=== PATIENT | female | born 1975 | race Caucasian/White ===

== ENCOUNTER 2022-09-08 | Outpatient (REF) | payer SELFPAY | END 2022-09-08 00:01 | disposition home or self-care (01) | LOC: HO.HOSX | PROVIDERS: Visit Provider Physician Assistant | DX: Z13.89 Encounter for screening for other disorder (principal) ==

== ENCOUNTER 2023-07-04 14:00 | Outpatient (RCR) | payer OTHER, SELFPAY | END 2023-07-21 08:24 | disposition home or self-care (01) | LOC: HO.PT 14:00 | PROVIDERS: PCP Pediatrics; Visit Provider Internal Medicine Rheumatology | DX: M50.30 Other cervical disc degeneration, unspecified cervical region (principal) | CPT/HCPCS: 97014; 97110; 97161 ==